=== PATIENT | male | born 1945 | race Caucasian/White ===

== ENCOUNTER 2017-04-21 11:23 | Inpatient (IN) ==
[2017-04-21] MEDS ORDERED: Ipratropium/Albuterol Neb 3 ML IH ONE (11:34)
--- NOTE | 2017-04-21 11:38 | Emergency Department Note ---
Disposition Clinical Impression: Acute exacerbation of chronic obstructive airways disease, Hypoxia Altered mental status Qualifiers: Altered mental status type: unspecified Qualified Code(s): R41.82 - Altered mental status, unspecified Disposition: Admitted As Inpatient Condition: Fair Referrals: NONE,PCP [Non-Partnered Physician] - Forms: ED Satisfaction Letter Time of Disposition: 13:16 Fever HPI - General Chief Complaint: ED Fever Stated Complaint: Cough, fever Time Seen by Provider: 04/21/17 11:25 Source: patient Mode of arrival: wheelchair Limitations: no limitations Nursing Notes Reviewed: Yes Vital Signs Reviewed: Yes - History of Present Illness HPI Narrative: 71-year-old male who comes in with a history COPD use had increasing shortness of breath cough and a fever. Concern is for pneumonia. Pt Subjective Complaint: fever, malaise Onset (ago): hour(s) Temperature Source: tympanic Associated symptoms: Reports: chills, rigors, cough, chest pain, dyspnea, nausea , vomiting, altered mental status Improves with: nothing Worsens with: nothing Treatments prior to arrival fever: none - Related Data Home Medications Medication Instructions Recorded Confirmed Gabapentin [Neurontin] 400 mg PO TID 04/21/17 04/21/17 HYDROcodone/Acet 10/325 mg [Lynch 1 tab PO Q6HR PRN 04/21/17 04/21/17 10-325 mg] Lisinopril [Zestril] 20 mg PO DAILY 04/21/17 04/21/17 Simvastatin [Zocor] 20 mg PO HS 04/21/17 04/21/17 amLODIPine [Norvasc] 5 mg PO DAILY 04/21/17 04/21/17 clonazePAM [Klonopin] 1 mg PO TID 04/21/17 04/21/17 metFORMIN [Glucophage] 500 mg PO QPM 04/21/17 04/21/17 Allergies Allergy/AdvReac Type Severity Reaction Status Date / Time No Known Allergies Allergy Verified 04/21/17 13:51 Constitutional: Denies: fever, chills, weakness, weight change Eyes: Denies: eye pain, eye discharge, vision change ENT ED: Denies: ear pain, throat pain, dental pain, hearing loss, epistaxis, congestion, dysphagia Cardiovascular: Reports: chest pain. Denies: palpitations, dyspnea on exertion , edema, syncope Respiratory: Reports: cough, dyspnea, wheezes. Denies: hemoptysis, stridor Gastrointestinal: Denies: abdominal pain, nausea, vomiting, diarrhea, constipation, hematemesis, melena, hematochezia Genitourinary: Denies: urgency, dysuria, frequency, hematuria Musculoskeletal: Denies: back pain, neck pain, arthralgia, myalgia Integumentary: Denies: rash, abrasion, lesions Neurological: Reports: confusion. Denies: headache, weakness, numbness, paresthesias, abnormal gait, vertigo Psychiatric: Denies: anxiety, depression, suicidal thoughts, homicidal thoughts , auditory hallucinations, visual hallucinations Endocrine: Denies: fatigue Hematological/Lymphatic: Denies: easy bleeding, easy bruising Allergic/Immunologic: Denies: facial swelling, urticaria Fever PMH - Past Medical History Medical history: Reports: COPD, diabetes, hyperlipidemia, hypertension Psychiatric history: Reports: no psych history - Social History Smoking Status: Never smoker Alcohol use: Reports: none Drug use: Reports: none Physical Exam - General Limitations: altered mental status General appearance: alert - Head Head exam: atraumatic, normocephalic, normal inspection - Eye Eye exam: Present: normal appearance, PERRL, EOMI - ENT ENT exam: normal exam, normal oropharynx, mucous membranes moist - Neck Neck exam: Present: normal inspection, full ROM, trachea midline - Chest Chest inspection: Present: normal inspection, symmetric chest wall rise - Respiratory Respiratory exam: Present: wheezes, accessory muscle use - Cardiovascular Cardiovascular exam: Present: regular rate, normal rhythm, normal heart sounds - Abdominal Exam Abdominal exam: Present: soft, Non-Tender. Absent: tenderness, distention, guarding, rebound, rigidity - Extremities Exam Extremities exam: Present: normal inspection, full ROM. Absent: tenderness, pedal edema - Expanded Lower Extremity Exam Neurovascular/Tendon exam: Absent: motor deficit, sensory deficit, tendon deficit Gait: not tested/not observed - Back Exam Back exam: Present: normal inspection, full ROM. Absent: tenderness - Neurological Exam Neurological exam: Present: alert. Absent: motor sensory deficit - Psychiatric Psychiatric exam: Present: normal affect - Skin Skin exam: Present: warm, dry, intact, normal color Course - Reevaluation(s) Reevaluation #1: 71-year-old who came in with fever and cough felt that he had pneumonia. A chest x-ray was consistent with bronchiolitis. His white count slightly elevated , slightly elevated lactate. Patient was given antibiotics IV. Patient's blood gas did show a compensated respiratory status with a normal pH and PCO2 of 61 PO2 was low at 51 he was placed on BiPAP. Initially when he came in he was awake and alert became more somnolent. We obtained a CT of the head. Differential includes sepsis, COPD exacerbation with states he does take Lynch and may have taken extra. Time: 13:38 Vital Signs Temperature 99.8 F H 04/21/17 11:25 Pulse Rate 121 04/21/17 11:25 Respiratory Rate 24 04/21/17 11:25 Blood Pressure 157/106 04/21/17 11:25 O2 Sat by Pulse Oximetry 74 04/21/17 11:25 Temperature 99.8 F H 04/21/17 11:25 Pulse Rate 104 04/21/17 14:31 Respiratory Rate 20 04/21/17 14:31 Blood Pressure 134/87 04/21/17 14:31 O2 Sat by Pulse Oximetry 98 04/21/17 14:31 Oxygen Delivery Oxygen Delivery Bipap Fever - Lab Data Lab results reviewed: Yes I reviewed the patient's lab results. Result diagrams: 04/21/17 11:57 04/21/17 11:57 Lab Results 04/21/17 04/21/17 04/21/17 Range/Units 11:38 11:57 11:57 WBC 14.0 H (4.3-11.1) K/mcL RBC 4.82 (4.19-5.50) M/mcL Hgb 13.0 (12.9-16.9) g/dL Hct 43.1 (37.5-50.1) % MCV 89.4 (83.0-100.0) fL MCH 27.0 L (28.0-33.3) pg MCHC 30.2 L (31.6-35.5) g/dL RDW 14.3 (11.5-14.5) % Plt Count 259 (140-400) K/mcL MPV 9.0 L (9.4-12.4) fL Immature Gran % 0.4 (0-4) % Seg Neutrophils % 86.8 % Lymphocytes % 5.3 % Monocytes % 5.4 % Eosinophils % 1.8 % Basophils % 0.3 % Neutrophils # 12.2 H (1.6-8.9) K/mcL Lymphocytes # 0.8 (0.6-4.6) K/mcL Monocytes # 0.8 (0.0-1.3) K/mcL Eosinophils # 0.3 (0.0-0.6) K/mcL Basophils # 0.0 (0.0-0.2) K/mcL Immature Plt Fraction 2.0 (1.1-6.1) % PT 12.3 H (9.4-12.1) Seconds INR 1.1 ABG pH (7.32-7.45) pH Units ABG pCO2 (35-45) mmHg ABG pO2 (85-104) mmHg ABG HCO3 (21-27) mEQ/L ABG Total CO2 (20-26) mEq/L ABG O2 Saturation (95-98) % ABG Base Excess (-2.0 to 3.0) mEq/L Liter Flow L/MIN Blood Gas Modality Inspired O2 % Sodium (136-145) mEq/L Potassium (3.5-4.5) mEq/L Chloride (98-109) mEq/L Carbon Dioxide (19-29) mEq/L BUN (8-26) mg/dL Creatinine (0.72-1.25) mg/dL Est GFR ( Amer) (> 60) Est GFR (Non-Af Amer) (> 60) BUN/Creatinine Ratio (6-26) Glucose (70-99) mg/dL Calculated Osmolality (280-300) Lactic Acid (0.5-2.2) mmol/L Calcium (8.6-10.8) mg/dL Total Bilirubin (0.2-1.2) mg/dL Direct Bilirubin (0.0-0.5) mg/dL Indirect Bilirubin (0.0-1.2) mg/dL AST (5-34) Units/L ALT (0-55) Units/L Alkaline Phosphatase (38-126) Units/L Troponin I (0-0.03) ng/mL Serum Total Protein (6.0-8.3) g/dL Albumin (3.5-5.0) g/dL Globulin (2.4-3.5) g/dL Albumin/Globulin Ratio (1.1-2.2) Urine Color Yellow (Yellow) Urine Clarity Clear (Clear) Urine pH 5.5 (5.0-8.0) pH Units Ur Specific [place] 1.014 (1.010-1.025) Urine Protein Negative (Neg-Trace) mg/dL Urine Glucose (UA) Normal (Normal) mg/dL Urine Ketones Negative (Negative) mg/dL Urine Blood Negative (Negative) Urine Nitrite Negative (Negative) Urine Bilirubin Negative (Negative) Urine Urobilinogen Normal (Normal) mg/dL Ur Leukocyte Esterase Negative (Negative) Ur Culture Indicated? NO (NO) 04/21/17 04/21/17 04/21/17 Range/Units 11:57 11:57 11:57 WBC (4.3-11.1) K/mcL RBC (4.19-5.50) M/mcL Hgb (12.9-16.9) g/dL Hct (37.5-50.1) % MCV (83.0-100.0) fL MCH (28.0-33.3) pg MCHC (31.6-35.5) g/dL RDW (11.5-14.5) % Plt Count (140-400) K/mcL MPV (9.4-12.4) fL Immature Gran % (0-4) % Seg Neutrophils % % Lymphocytes % % Monocytes % % Eosinophils % % Basophils % % Neutrophils # (1.6-8.9) K/mcL Lymphocytes # (0.6-4.6) K/mcL Monocytes # (0.0-1.3) K/mcL Eosinophils # (0.0-0.6) K/mcL Basophils # (0.0-0.2) K/mcL Immature Plt Fraction (1.1-6.1) % PT (9.4-12.1) Seconds INR ABG pH (7.32-7.45) pH Units ABG pCO2 (35-45) mmHg ABG pO2 (85-104) mmHg ABG HCO3 (21-27) mEQ/L ABG Total CO2 (20-26) mEq/L ABG O2 Saturation (95-98) % ABG Base Excess (-2.0 to 3.0) mEq/L Liter Flow L/MIN Blood Gas Modality Inspired O2 % Sodium 139 (136-145) mEq/L Potassium 3.7 (3.5-4.5) mEq/L Chloride 97 L (98-109) mEq/L Carbon Dioxide 32 H (19-29) mEq/L BUN 9 (8-26) mg/dL Creatinine 0.98 (0.72-1.25) mg/dL Est GFR ( Amer) > 60 (> 60) Est GFR (Non-Af Amer) > 60 (> 60) BUN/Creatinine Ratio 9 (6-26) Glucose 174 H (70-99) mg/dL Calculated Osmolality 291 (280-300) Lactic Acid 2.5 H (0.5-2.2) mmol/L Calcium 9.9 (8.6-10.8) mg/dL Total Bilirubin (0.2-1.2) mg/dL Direct Bilirubin (0.0-0.5) mg/dL Indirect Bilirubin (0.0-1.2) mg/dL AST (5-34) Units/L ALT (0-55) Units/L Alkaline Phosphatase (38-126) Units/L Troponin I 0.00 (0-0.03) ng/mL Serum Total Protein (6.0-8.3) g/dL Albumin (3.5-5.0) g/dL Globulin (2.4-3.5) g/dL Albumin/Globulin Ratio (1.1-2.2) Urine Color (Yellow) Urine Clarity (Clear) Urine pH (5.0-8.0) pH Units Ur Specific [place] (1.010-1.025) Urine Protein (Neg-Trace) mg/dL Urine Glucose (UA) (Normal) mg/dL Urine Ketones (Negative) mg/dL Urine Blood (Negative) Urine Nitrite (Negative) Urine Bilirubin (Negative) Urine Urobilinogen (Normal) mg/dL Ur Leukocyte Esterase (Negative) Ur Culture Indicated? (NO) 04/21/17 04/21/17 04/21/17 Range/Units 11:57 12:05 13:30 WBC (4.3-11.1) K/mcL RBC (4.19-5.50) M/mcL Hgb (12.9-16.9) g/dL Hct (37.5-50.1) % MCV (83.0-100.0) fL MCH (28.0-33.3) pg MCHC (31.6-35.5) g/dL RDW (11.5-14.5) % Plt Count (140-400) K/mcL MPV (9.4-12.4) fL Immature Gran % (0-4) % Seg Neutrophils % % Lymphocytes % % Monocytes % % Eosinophils % % Basophils % % Neutrophils # (1.6-8.9) K/mcL Lymphocytes # (0.6-4.6) K/mcL Monocytes # (0.0-1.3) K/mcL Eosinophils # (0.0-0.6) K/mcL Basophils # (0.0-0.2) K/mcL Immature Plt Fraction (1.1-6.1) % PT (9.4-12.1) Seconds INR ABG pH 7.35 7.36 (7.32-7.45) pH Units ABG pCO2 61 H 60 H (35-45) mmHg ABG pO2 51 L 51 L (85-104) mmHg ABG HCO3 33.7 H 33.9 H (21-27) mEQ/L ABG Total CO2 35.6 H 35.7 H (20-26) mEq/L ABG O2 Saturation 84 L 84 L (95-98) % ABG Base Excess 6.2 H 6.6 H (-2.0 to 3.0) mEq/L Liter Flow 4 L/MIN Blood Gas Modality NC BPAP Inspired O2 35 % Sodium (136-145) mEq/L Potassium (3.5-4.5) mEq/L Chloride (98-109) mEq/L Carbon Dioxide (19-29) mEq/L BUN (8-26) mg/dL Creatinine (0.72-1.25) mg/dL Est GFR ( Amer) (> 60) Est GFR (Non-Af Amer) (> 60) BUN/Creatinine Ratio (6-26) Glucose (70-99) mg/dL Calculated Osmolality (280-300) Lactic Acid (0.5-2.2) mmol/L Calcium (8.6-10.8) mg/dL Total Bilirubin 0.9 (0.2-1.2) mg/dL Direct Bilirubin 0.3 (0.0-0.5) mg/dL Indirect Bilirubin 0.6 (0.0-1.2) mg/dL AST 16 (5-34) Units/L ALT 8 (0-55) Units/L Alkaline Phosphatase 86 (38-126) Units/L Troponin I (0-0.03) ng/mL Serum Total Protein 8.3 (6.0-8.3) g/dL Albumin 3.9 (3.5-5.0) g/dL Globulin 4.4 H (2.4-3.5) g/dL Albumin/Globulin Ratio 0.9 L (1.1-2.2) Urine Color (Yellow) Urine Clarity (Clear) Urine pH (5.0-8.0) pH Units Ur Specific [place] (1.010-1.025) Urine Protein (Neg-Trace) mg/dL Urine Glucose (UA) (Normal) mg/dL Urine Ketones (Negative) mg/dL Urine Blood (Negative) Urine Nitrite (Negative) Urine Bilirubin (Negative) Urine Urobilinogen (Normal) mg/dL Ur Leukocyte Esterase (Negative) Ur Culture Indicated? (NO) - Radiology Data Radiology results reviewed: Yes I reviewed the patient's radiology results. Chest X-Ray 04/21/17 11:33 IMPRESSION: Bilateral central pulmonary reticulonodular densities which may represent bronchitis/bronchiolitis. No lobar pneumonia. D/ / 04/21/2017 12:04:45 Joseph Sharma MD / nick Interpreting Provider: Joseph Sharma MD Chest X-Ray 04/21/17 11:33 IMPRESSION: Bilateral central pulmonary reticulonodular densities which may represent bronchitis/bronchiolitis. No lobar pneumonia. D/ / 04/21/2017 12:04:45 Joseph Sharma MD / nick Interpreting Provider: Joseph Sharma MD Head CT 04/21/17 13:36 IMPRESSION: No acute intracranial abnormality. D/ / Ted Perdomo MD / Ted Perdomo MD Interpreting Provider: Ted Perdomo MD - EKG Data EKG attestation: Yes I reviewed and interpreted this EKG. EKG shows normal: sinus rhythm Rate: bradycardia Rhythm: NSR Interpretation: no acute changes, nonspecific ST-T wave changes Critical Care Time Critical Care Time: Yes Total Critical Care Time: 30 Attestation: The high probability of a clinically significant, sudden or life threatening deterioration of the [respiratory] system(s) required my full and direct attention, intervention and personal management. The aggregate critical care time was [30] minutes. This time is in addition to time spent performing reported procedures but includes the following: [x] Data Review and interpretation [x] Patient assessment and monitoring of vital signs [x] Documentation [x] Medication orders and management
[2017-04-21 12:00] LABS: Bilirubin,Urine Negative (Negative); Blood,Urine Negative (Negative); Clarity,Urine Clear (Clear); Color,Urine Yellow (Yellow); Glucose,Urine (UA) Normal (Normal); Ketones,Urine Negative (Negative); Leukocyte Esterase,Urine Negative (Negative); Nitrite,Urine Negative (Negative); PH,Urine 5.5 pH Units (5.0-8.0); Protein,Urine Negative (Neg-Trace); Specific Gravity,Urine 1.014 (1.010-1.025); Urobilinogen,Urine Normal (Normal)
[2017-04-21 12:15] LABS: Basophils % 0.3 %; Eosinophils # 0.3 K/mcL (0.0-0.6); Eosinophils % 1.8 %; Hematocrit 43.1 % (37.5-50.1); Immature Granulocytes % 0.4 % (0-4); Lymphocytes # 0.8 K/mcL (0.6-4.6); Lymphocytes % 5.3 %; Mean Corpuscular HGB Conc 30.2 g/dL (31.6-35.5); Mean Corpuscular Volume 89.4 fL (83.0-100.0); Monocytes # 0.8 K/mcL (0.0-1.3); Monocytes % 5.4 %; Neutrophils # 12.2 K/mcL (1.6-8.9); Platelet Count 259 K/mcL (140-400); Red Blood Count 4.82 M/mcL (4.19-5.50); Red Cell Distribution Width 14.3 % (11.5-14.5); Segmented Neutrophils % 86.8 %
[2017-04-21 12:15] LABS: ABG Base Excess 6.2 mEq/L (-2.0 to 3.0); ABG HCO3 33.7 mEQ/L (21-27); ABG Oxygen Saturation 84 % (95-98); ABG PCO2 61 mmHg (35-45); ABG PH 7.35 pH Units (7.32-7.45); ABG PO2 51 mmHg (85-104); ABG TCO2 35.6 mEq/L (20-26)
[2017-04-21 12:16] LABS: Blood Gas Liter Flow 4 L/MIN
[2017-04-21 12:24] LABS: INR 1.1; Prothrombin Time 12.3 Seconds (9.4-12.1)
[2017-04-21 12:27] LABS: BUN/Creatinine Ratio 9 (6-26); Blood Urea Nitrogen 9 mg/dL (8-26); Calcium 9.9 mg/dL (8.6-10.8); Carbon Dioxide 32 mEq/L (19-29); Chloride 97 mEq/L (98-109); Glucose 174 mg/dL (70-99); Osmolality,Calculated 291 (280-300); Potassium 3.7 mEq/L (3.5-4.5); Sodium 139 mEq/L (136-145); eGFR For African Americans > 60 (> 60); eGFR For Non-African Americans > 60 (> 60)
[2017-04-21 12:28] LABS: Albumin 3.9 g/dL (3.5-5.0); Albumin/Globulin Ratio 0.9 (1.1-2.2); Bilirubin,Direct 0.3 mg/dL (0.0-0.5); Bilirubin,Indirect 0.6 mg/dL (0.0-1.2); Globulin 4.4 g/dL (2.4-3.5); Total Protein 8.3 g/dL (6.0-8.3)
[2017-04-21 12:30] LABS: Bilirubin,Total 0.9 mg/dL (0.2-1.2)
[2017-04-21] MEDS ORDERED: Levofloxacin 750 MG/150 ML 750 MG/150 ML BAG IVPB ONE (12:38)
[2017-04-21 13:48] LABS: ABG Base Excess 6.6 mEq/L (-2.0 to 3.0); ABG HCO3 33.9 mEQ/L (21-27); ABG Oxygen Saturation 84 % (95-98); ABG PCO2 60 mmHg (35-45); ABG PH 7.36 pH Units (7.32-7.45); ABG PO2 51 mmHg (85-104); ABG TCO2 35.7 mEq/L (20-26)
[2017-04-21 13:49] LABS: Blood Gas FiO2 35 %
[2017-04-21 14:39] LABS: ABG Base Excess 6.6 mEq/L (-2.0 to 3.0); ABG HCO3 33.9 mEQ/L (21-27); ABG Oxygen Saturation 98 % (95-98); ABG PCO2 60 mmHg (35-45); ABG PH 7.36 pH Units (7.32-7.45); ABG PO2 107 mmHg (85-104); ABG TCO2 35.7 mEq/L (20-26)
[2017-04-21 14:41] LABS: Blood Gas FiO2 50 %; Blood Gas Respiration Rate 8
[2017-04-21] MEDS ORDERED: Naloxone 0.4 MG/ML INJ IVP PRN (14:41)
[2017-04-21] MEDS ORDERED: Ondansetron 4 MG/2 ML VIAL IVP PRN (14:41)
[2017-04-21] MEDS ORDERED: Acetaminophen 325 MG TABLET PO PRN (14:41)
[2017-04-21] MEDS ORDERED: Naloxone 0.4 MG/ML INJ IVP ONE (14:55)
[2017-04-21] MEDS ORDERED: Albuterol 2.5 MG/3 ML NEBULIZER IH PRN (14:58)
[2017-04-21] MEDS ORDERED: methylPREDNISolone 125 MG/2 ML VIAL IVP ONE (15:00)
--- NOTE | 2017-04-21 15:15 | Internal Med History&Physical ---
Date of Encounter: 04/21/17 Time of Encounter: 15:03 Assessment and Plan (1) Acute and chronic respiratory failure Current visit: Yes Status: Acute Patient with COPD and wears 2L O2 at home. He presents with shortness of breath , cough, fever. He is hypoxic with saturation of 84% on 4L NC. This improved on bipap to 90s. Of note, patient does not wish to be intubated. Continue bipap and treat COPD exacerbation with steroids, nebulizers and antibiotics. Qualifiers: Respiratory failure complication: hypoxia Qualified Code(s): J96.21 - Acute and chronic respiratory failure with hypoxia (2) Acute exacerbation of chronic obstructive airways disease Current visit: Yes Status: Acute Patient with COPD and wears 2L O2 at home. He presents with SOB, cough. CXR consistent with bronchitis. He is hypoxic requiring bipap. duoneb treatments QID albuterol nebulizer Q2hr PRN Solu-medrol 125mg IVP followed by 60mg IVP TID titrate bipap and oxygen to maintain O2 saturation > 92%. Levaquin IVPB daily. (3) Sepsis Current visit: Yes Status: Acute Patient with bronchitis, tachycardia with HR in 100s, tachypnea with RR 22-24, and elevated WBC of 14.0. Lactate was 2.5. Blood cultures drawn and sent. second lactate ordered antibiotics initiated with Levaquin. Qualifiers: Sepsis type: sepsis due to unspecified organism Qualified Code(s): A41.9 - Sepsis, unspecified organism (4) Altered mental status Current visit: Yes Status: Acute Patient somnolent on assessment, but arousable. Patient's reports he seemed a bit disoriented. she reports at baseline it is not unusual for him to sleep 18 hours a day, and rarely leaves the house. She reports he takes [place] for chronic back pain and he may have taken too much today. Patient is hypoxic and meets criteria for sepsis. His somnolence may be due to narcotic respiratory suppression and hypoxia. 1 dose of narcan ordered, monitor patient for response. Treat hypoxia and cOPD exacerbation with bipap, steroids, antibiotics and nebulizers. Qualifiers: Altered mental status type: somnolence Qualified Code(s): R40.0 - Somnolence (5) Hypoxia Current visit: Yes Status: Acute Secondary to bronchitis and COPD exacerbation. Patient satting 84% on 4L. He improved to 90s on bipap. Continue bipap and titrate to maintain saturation > 92%. (6) Type 2 diabetes mellitus Current visit: Yes Status: Acute Hold metformin diabetic diet check Hgb A1c check blood sugars ACHS sliding scale correction dose ACHS hypoglycemic protocol. 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 Qualifiers: Sleep apnea type: unspecified type Qualified Code(s): G47.30 - Sleep apnea , unspecified (8) DVT prophylaxis Current visit: Yes Status: Acute anti-embolic stockings lovenox SQ daily. Internal Medicine - H&P: HPI Chief complaint: shortness of breath, fever Admitted From: Emergency Dept Plans for Post Hospital Care: Home History of present illness: Mr. Jauregui is a 71 year old male with HTN, HLD, type 2 DM, CAD s/p stent placements, COPD on 2L O2 at home presented to the ED today with complaintes of fever, cought and shortness of breath. Patient was somnolent on evaluation and most of history obtained from his . She reports patient has been coughing a lot lately, and that when she returned from an errand this morning, he seemed a little disoriented and asked that she take his temperature, she reports it was 100.1. He then asked to be taken to the ED. She reports he takes pain medication for chronic back pain and it is possible he has taken too much of that. She also reports he was diagnosed with bronchitis about a week ago and treated with Keflex. On arrival to the [facility], she reports patient vomited. Paitent also reporting some chest discomfort, chills. Evaluation in the ED revealed elevated WBC of 14.0, tachycardia with HR in the low 100s, elevated RR of 22-24. Troponin was negative at 0.00. Lactate was elevated at 2.5. ABG showed hypoxia with O2 sat of 84% on 4L and after initial bipap. His ABG improved after increasing bipap settings. CXR showed bilateral central pulmonary densities consistent with bronchitis vs. bronchiolitis. CT of the head was negative for acute abnormality. On exam, patient was somnolent but arousable. Heart had regular rhythm with mildly tachycardic rate. Lungs with bilateral rhonchi. Patient was satting in the 90s on bipap. Past Med Surg Social Fam HX - Past Medical History Medical history: COPD, coronary artery disease, diabetes, hyperlipidemia, hypertension, other (sleep apnea) Psychiatric history: no psych history - Past Surgical History Surgical History: angioplasty/stent, other - Social History Smoking Status: Former smoker (100 pack year history) Smokeless Tobacco Status: No Alcohol use: none Drug use: none - Family History Mother Living Status: Hx Family Cardiac Disorders: Yes Hx Family Genitourinary Disorders: Yes (ESRD) Father Living Status: Hx Family Cardiac Disorders: Yes Hx Family Endocrine Disorder: Yes (Diabetes) Internal Medicine - H&P: Meds Gabapentin [Neurontin] 400 mg PO TID 04/21/17 [History] HYDROcodone/Acet 10/325 mg [[place] 10-325 mg] 1 tab PO Q6HR PRN 04/21/17 [History ] Lisinopril [Zestril] 20 mg PO DAILY 04/21/17 [History] Simvastatin [Zocor] 20 mg PO HS 04/21/17 [History] amLODIPine [Norvasc] 5 mg PO DAILY 04/21/17 [History] clonazePAM [Klonopin] 1 mg PO TID 04/21/17 [History] metFORMIN [Glucophage] 500 mg PO QPM 04/21/17 [History] Allergies No Known Allergies Allergy (Verified 04/21/17 13:51) ROS unobtainable: due to mental status All Systems PM: A 10-system review of systems was performed and is negative for pertinent findings except as documented above in the HPI. - Constitutional Vitals: Temp Pulse Resp BP Pulse Ox 99.8 F H 104 20 134/87 98 04/21/17 11:25 04/21/17 14:31 04/21/17 14:31 04/21/17 14:31 04/21/17 14:31 General appearance: Present: A&O X 3 - Head Head exam: Present: atraumatic, normocephalic - Eye Eye exam: Present: PERRL, conjuntiva pink, sclera anicteric Pupils: Present: PERRL - Neck Neck exam general surgery: Present: supple, trachea midline. Absent: lymphadenopathy - Respiratory Respiratory exam: Present: accessory muscle use, decreased breath sounds, rales , rhonchi, tachypnea. Absent: wheezes - Cardiovascular Cardiovascular exam: Present: +S1, +S2, tachycardia. Absent: diastolic murmur, gallop, rubs, systolic murmur - GI/Abdominal GI/Abdominal exam: Present: normal bowel sounds, soft, no peritoneal signs. Absent: distended, tenderness - Extremities Exam Extremities exam: Present: warm, radial pulses palpable and symmetrical. Absent : calf tenderness, cyanotic, pedal edema - Neurological Exam Neurological exam: Present: CN II-XII intact, oriented X3. Absent: facial droop , speech deficit Additional comments: somnolent but arousable - Skin Skin exam: Present: dry, intact Internal Med - H&P Results - Labs CBC & Chem 7: 04/21/17 11:57 04/21/17 11:57 Labs: Short CBC 04/21/17 Range/Units 11:57 WBC 14.0 H (4.3-11.1) K/mcL Hgb 13.0 (12.9-16.9) g/dL Hct 43.1 (37.5-50.1) % Plt Count 259 (140-400) K/mcL Neutrophils # 12.2 H (1.6-8.9) K/mcL BMP 04/21/17 11:57 Sodium 139 Potassium 3.7 Chloride 97 L Carbon Dioxide 32 H BUN 9 Creatinine 0.98 Glucose 174 H Calcium 9.9 Cardiac Enzymes 04/21/17 Range/Units 11:57 Troponin I 0.00 (0-0.03) ng/mL Liver Function 04/21/17 Range/Units 11:57 Total Bilirubin 0.9 (0.2-1.2) mg/dL Direct Bilirubin 0.3 (0.0-0.5) mg/dL AST 16 (5-34) Units/L ALT 8 (0-55) Units/L Alkaline Phosphatase 86 (38-126) Units/L Albumin 3.9 (3.5-5.0) g/dL Urine 04/21/17 Range/Units 11:38 Urine Color Yellow (Yellow) Urine Clarity Clear (Clear) Urine pH 5.5 (5.0-8.0) pH Units Ur Specific [place] 1.014 (1.010-1.025) Urine Protein Negative (Neg-Trace) mg/dL Urine Glucose (UA) Normal (Normal) mg/dL - ABG Interpretation ABG results: 04/21/17 04/21/17 04/21/17 12:05 13:30 14:35 ABG pH 7.35 7.36 7.36 ABG pCO2 61 H 60 H 60 H ABG pO2 51 L 51 L 107 H ABG HCO3 33.7 H 33.9 H 33.9 H ABG Total CO2 35.6 H 35.7 H 35.7 H ABG O2 Saturation 84 L 84 L 98 ABG Base Excess 6.2 H 6.6 H 6.6 H - Impressions ITS Impressions Chest X-Ray 04/21/17 11:33 IMPRESSION: Bilateral central pulmonary reticulonodular densities which may represent bronchitis/bronchiolitis. No lobar pneumonia. D/ /21/2017 12:04:45 Joseph Sharma MD / nick Interpreting Provider: Joseph Sharma MD Head CT 04/21/17 13:36 IMPRESSION: No acute intracranial abnormality. D/ / Ted Perdomo MD / Ted Perdomo MD Interpreting Provider: Ted Perdomo MD - Diagnostic Studies Chest x-ray Additional comments: Chest X-Ray 04/21/17 11:33 IMPRESSION: Bilateral central pulmonary reticulonodular densities which may represent bronchitis/bronchiolitis. No lobar pneumonia. D/ : / 04/21/2017 12:04:45 Joseph Sharma MD / nick Interpreting Provider: Joseph Sharma MD CT scan - head Additional comments: Head CT 04/21/17 13:36
[2017-04-21] MEDS ORDERED: D5% in Water 1,000 ML IVC PRN (15:28)
[2017-04-21] MEDS ORDERED: Dextrose Gel 15 GM PO PRN ×2 (15:28)
[2017-04-21] MEDS ORDERED: *HR* Dextrose 50 % in Water (Syg) 50 ML SYRINGE IVP PRN (15:28)
[2017-04-21] MEDS: Ipratropium/Albuterol Neb 3 ML IH SCH ×2 (16:02→23:12)
[2017-04-21] MEDS: clonazePAM 1 MG TABLET PO SCH ×2 (17:06→21:46)
[2017-04-21] MEDS: Insulin LISPRO 300 UNITS/3 ML VIAL SQ SCH ×2 (17:07→21:46)
[2017-04-21] MEDS: Piperacillin/Tazobactam 3.375 GM in D5% in Water (Mini-Bag+) 100 ML IVPB SCH (18:25)
[2017-04-21] MEDS: Budesonide/Formoterol 160/4.5 MDI IH SCH (23:13)
[2017-04-22] MEDS: methylPREDNISolone 125 MG/2 ML VIAL IVP SCH ×4 (00:01→23:41)
[2017-04-22 01:02] LABS: Basophils % 0.2 %; Hematocrit 41.3 % (37.5-50.1); Hemoglobin 12.7 g/dL (12.9-16.9); Immature Granulocytes % 0.2 % (0-4); Lymphocytes # 0.7 K/mcL (0.6-4.6); Lymphocytes % 5.3 %; Mean Corpuscular HGB Conc 30.8 g/dL (31.6-35.5); Mean Corpuscular Hemoglobin 26.9 pg (28.0-33.3); Mean Corpuscular Volume 87.5 fL (83.0-100.0); Mean Platelet Volume 9.3 fL (9.4-12.4); Monocytes # 0.1 K/mcL (0.0-1.3); Monocytes % 0.8 %; Neutrophils # 12.1 K/mcL (1.6-8.9); Platelet Count 208 K/mcL (140-400); Red Blood Count 4.72 M/mcL (4.19-5.50); Red Cell Distribution Width 14.4 % (11.5-14.5); Segmented Neutrophils % 93.5 %
[2017-04-22 01:13] LABS: BUN/Creatinine Ratio 12 (6-26); Blood Urea Nitrogen 11 mg/dL (8-26); Calcium 9.8 mg/dL (8.6-10.8); Carbon Dioxide 33 mEq/L (19-29); Chloride 98 mEq/L (98-109); Glucose 187 mg/dL (70-99); Osmolality,Calculated 292 (280-300); Potassium 4.1 mEq/L (3.5-4.5); Sodium 139 mEq/L (136-145); eGFR For African Americans > 60 (> 60); eGFR For Non-African Americans > 60 (> 60)
[2017-04-22] MEDS: Ipratropium/Albuterol Neb 3 ML IH SCH ×4 (04:27→23:02)
[2017-04-22] MEDS: *HR* Enoxaparin 40 MG/0.4 ML SYRINGE SQ SCH (05:09)
[2017-04-22] MEDS: Piperacillin/Tazobactam 3.375 GM in D5% in Water (Mini-Bag+) 100 ML IVPB SCH ×3 (05:09→23:40)
[2017-04-22] MEDS: Lisinopril 20 MG TABLET PO SCH (08:22)
[2017-04-22] MEDS: amLODIPine 5 MG TABLET PO SCH (08:22)
[2017-04-22] MEDS: clonazePAM 1 MG TABLET PO SCH ×3 (08:22→21:51)
[2017-04-22] MEDS: Insulin LISPRO 300 UNITS/3 ML VIAL SQ SCH ×4 (08:23→21:52)
[2017-04-22] MEDS: Levofloxacin 750 MG/150 ML 750 MG/150 ML BAG IVPB SCH (08:23)
[2017-04-22] MEDS: Budesonide/Formoterol 160/4.5 MDI IH SCH ×2 (11:22→23:02)
[2017-04-22] MEDS: Aspirin 81 MG TAB.CHEW PO SCH (16:16)
--- NOTE | 2017-04-22 16:16 | Electrocardiograph Report ---
[place] [id number] Test Date: 2017-04-21 Pat Name: Froylan Jauregui Department: 102 Room: [id number] Gender: M Flatbed Truck Driver: Joseph : 1945 Requested By: Hector Rider Order Number: [id number] Reading MD: Wedny Middleton Measurements Intervals [place] Rate: 125 P: 67 SC: 189 QRS: 28 QRSD: 102 T: 72 QT: 336 QTc: 410 Interpretive Statements SINUS TACHYCARDIA NONSPECIFIC T-WAVE ABNORMALITY ABNORMAL RHYTHM ECG Electronically Signed On 04-22-2017 16:14:28 EDT by Wendy Middleton
--- NOTE | 2017-04-22 16:56 | Internal Med Progress Note ---
Date of Encounter: 04/22/17 Time of Encounter: 08:15 - Assessment and plan (1) Sepsis Current Visit: Yes Status: Acute Assessment and plan: Patient presented with tachycardia, tachypnea and noted to have leukocytosis and pneumonia on imaging. Continue IV hydration, IV antibiotics. Remaining plan as below. Qualifiers: Sepsis type: sepsis due to unspecified organism Qualified Code(s): A41.9 - Sepsis, unspecified organism (2) Pneumonia Current Visit: Yes Status: Acute Assessment and plan: CT angiogram of chest shows bibasal infiltrates and right upper lobe nodules, suggestive of atelectasis/pneumonia. Patient and his report ongoing worsening symptoms for the last few days. Continue broad-spectrum IV antibiotics-Levaquin and Zosyn. Follow blood cultures, send sputum Gram stain and culture. IV hydration. Supplemental oxygen. Qualifiers: Pneumonia type: due to unspecified organism Laterality: bilateral Lung location: lower lobe of lung Qualified Code(s): J18.9 - Pneumonia, unspecified organism (3) Acute encephalopathy Current Visit: Yes Status: Resolved Assessment and plan: Likely related to narcotic pain medications and hypoxemia. Toxic/hypoxic. Currently resolved, at baseline. (4) Essential hypertension Current Visit: Yes Status: Chronic (5) Acute exacerbation of chronic obstructive airways disease Current Visit: Yes Status: Acute Assessment and plan: Improving. Continue scheduled bronchodilators, taper IV steroids as tolerated. Patient would likely benefit from inhaled corticosteroids at discharge. Continue supplemental oxygen and wean down FiO2 as tolerated. Patient is noted to be on home oxygen as needed. (6) Type 2 diabetes mellitus Current Visit: Yes Status: Chronic Assessment and plan: Accu-Chek blood glucose monitoring with sliding scale insulin. At risk for steroid-induced hyperglycemia. Diabetic diet. 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 Continue supplemental oxygen. Qualifiers: Respiratory failure complication: hypoxia Qualified Code(s): J96.21 - Acute and chronic respiratory failure with hypoxia - Subjective Interval history: Reports feeling well; improving shortness of breath; poor historian, most of the history obtained from his at bedside; Reports dry cough, currently improving. No chest pain, fever or chills. Patient states that he will be leaving AGAINST MEDICAL ADVICE tomorrow evening at 5 PM, if he is not discharged. - Constitutional Vitals: Temp Pulse Resp BP Pulse Ox 98.2 F 102 18 154/79 95 04/22/17 15:47 04/22/17 15:47 04/22/17 16:45 04/22/17 15:47 04/22/17 16:45 General appearance: Present: A&O X 3, answers questions appropriately - Respiratory Respiratory exam: Present: CTAB, rales (Bilateral coarse rhonchorous breath sounds). Absent: accessory muscle use, rhonchi, wheezes - Cardiovascular Cardiovascular exam: Present: RRR, +S1, +S2. Absent: diastolic murmur, gallop, rubs, systolic murmur - GI/Abdominal GI/Abdominal exam: Present: normal bowel sounds, soft, no peritoneal signs. Absent: distended, tenderness - Extremities Exam Extremities exam: Present: full ROM, warm, radial pulses palpable and symmetrical. Absent: calf tenderness, cyanotic, pedal edema - Neurological Exam Neurological exam: Present: CN II-XII intact, oriented X3, no focal deficits. Absent: pronater drift, facial droop, speech deficit Internal Medicine: Result - Labs CBC & Chem 7: 04/22/17 00:02 04/22/17 00:02 Labs: Short CBC 04/22/17 Range/Units 00:02 WBC 13.0 H (4.3-11.1) K/mcL Hgb 12.7 L (12.9-16.9) g/dL Hct 41.3 (37.5-50.1) % Plt Count 208 (140-400) K/mcL Neutrophils # 12.1 H (1.6-8.9) K/mcL BMP 04/22/17 00:02 Sodium 139 Potassium 4.1 Chloride 98 Carbon Dioxide 33 H BUN 11 Creatinine 0.94 Glucose 187 H Calcium 9.8 Cardiac Enzymes 04/21/17 04/22/17 Range/Units 17:25 00:02 Troponin I 0.00 0.00 (0-0.03) ng/mL - ABG Interpretation ABG results: ABG ABG pH 7.36 pH Units (7.32-7.45) 04/21/17 14:35 ABG pCO2 60 mmHg (35-45) H 04/21/17 14:35 ABG pO2 107 mmHg (85-104) H 04/21/17 14:35 ABG O2 Saturation 98 % (95-98) 04/21/17 14:35 PT/INR, D-dimer PT 12.3 Seconds (9.4-12.1) H 04/21/17 11:57 Consult Discharge Plan - Plan Referrals: Shivam Sharp MD [Primary Care Provider] -
[2017-04-23] MEDS: Ipratropium/Albuterol Neb 3 ML IH SCH ×4 (04:46→22:47)
[2017-04-23 05:02] LABS: Basophils % 0.1 %; Hematocrit 38.4 % (37.5-50.1); Hemoglobin 12.3 g/dL (12.9-16.9); Immature Granulocytes % 0.6 % (0-4); Lymphocytes # 0.5 K/mcL (0.6-4.6); Lymphocytes % 2.6 %; Mean Corpuscular Hemoglobin 27.7 pg (28.0-33.3); Mean Corpuscular Volume 86.5 fL (83.0-100.0); Mean Platelet Volume 8.9 fL (9.4-12.4); Monocytes # 0.4 K/mcL (0.0-1.3); Monocytes % 2.3 %; Neutrophils # 17.2 K/mcL (1.6-8.9); Platelet Count 214 K/mcL (140-400); Red Blood Count 4.44 M/mcL (4.19-5.50); Red Cell Distribution Width 14.5 % (11.5-14.5); Segmented Neutrophils % 94.4 %
[2017-04-23 05:14] LABS: BUN/Creatinine Ratio 18 (6-26); Blood Urea Nitrogen 16 mg/dL (8-26); Carbon Dioxide 31 mEq/L (19-29); Chloride 99 mEq/L (98-109); Glucose 253 mg/dL (70-99); Osmolality,Calculated 298 (280-300); Sodium 139 mEq/L (136-145); eGFR For African Americans > 60 (> 60); eGFR For Non-African Americans > 60 (> 60)
[2017-04-23 05:15] LABS: Potassium 4.2 mEq/L (3.5-4.5)
[2017-04-23] MEDS: *HR* Enoxaparin 40 MG/0.4 ML SYRINGE SQ SCH (06:07)
[2017-04-23] MEDS: Insulin LISPRO 300 UNITS/3 ML VIAL SQ SCH ×4 (08:55→20:55)
[2017-04-23] MEDS: Aspirin 81 MG TAB.CHEW PO SCH (08:58)
[2017-04-23] MEDS: clonazePAM 1 MG TABLET PO SCH ×3 (08:58→20:55)
[2017-04-23] MEDS: Lisinopril 20 MG TABLET PO SCH (08:58)
[2017-04-23] MEDS: amLODIPine 5 MG TABLET PO SCH (08:58)
[2017-04-23] MEDS: Piperacillin/Tazobactam 3.375 GM in D5% in Water (Mini-Bag+) 100 ML IVPB SCH ×2 (08:58→15:54)
[2017-04-23] MEDS: Levofloxacin 750 MG/150 ML 750 MG/150 ML BAG IVPB SCH (09:04)
[2017-04-23] MEDS: MethylPREDNISolone 40 MG/ML VIAL IVP SCH ×2 (10:51→17:42)
[2017-04-23] MEDS: Budesonide/Formoterol 160/4.5 MDI IH SCH ×2 (11:00→22:47)
--- NOTE | 2017-04-23 18:19 | Internal Med Progress Note ---
Date of Encounter: 04/23/17 Time of Encounter: 09:20 - Assessment and plan (1) Sepsis Current Visit: Yes Status: Acute Assessment and plan: Patient presented with tachycardia, tachypnea and noted to have leukocytosis and pneumonia on imaging. Noted to have worsening leukocytosis, likely related to steroid use. Continue IV hydration, IV antibiotics. Remaining plan as below. Qualifiers: Sepsis type: sepsis due to unspecified organism Qualified Code(s): A41.9 - Sepsis, unspecified organism (2) Pneumonia Current Visit: Yes Status: Acute Assessment and plan: CT angiogram of chest shows bibasal infiltrates and right upper lobe nodules, suggestive of atelectasis/pneumonia. Continue IV Zosyn and hold Levaquin at this time. 2 sets of initial blood cultures are so far negative. Unable to send sputum for Gram stain and culture as patient is not able to produce sputum. Add cough suppressant. Supplemental oxygen. Qualifiers: Pneumonia type: due to unspecified organism Laterality: bilateral Lung location: lower lobe of lung Qualified Code(s): J18.9 - Pneumonia, unspecified organism (3) Acute encephalopathy Current Visit: Yes Status: Resolved (4) Essential hypertension Current Visit: Yes Status: Chronic (5) Acute exacerbation of chronic obstructive airways disease Current Visit: Yes Status: Acute Assessment and plan: Improving but patient needs further monitoring. Continue scheduled bronchodilators, taper IV steroids as tolerated. Patient would likely benefit from inhaled corticosteroids at discharge. Continue supplemental oxygen and wean down FiO2 as tolerated. Patient is noted to be on home oxygen as needed. (6) Type 2 diabetes mellitus Current Visit: Yes Status: Chronic Assessment and plan: Accu-Chek blood glucose monitoring with sliding scale insulin. At risk for steroid-induced hyperglycemia. Diabetic diet. 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 intermodal truck driver use Qualified Code(s) : E11.8 - Type 2 diabetes mellitus with unspecified complications; Z79.4 - local company intermodal truck driver (current) use of insulin (7) Sleep apnea Current Visit: Yes Status: Chronic Qualifiers: Sleep apnea type: unspecified type Qualified Code(s): G47.30 - Sleep apnea , unspecified (8) Acute and chronic respiratory failure Current Visit: Yes Status: Acute Qualifiers: Respiratory failure complication: hypoxia Qualified Code(s): J96.21 - Acute and chronic respiratory failure with hypoxia - Subjective Interval history: Continues to have intermittent dry cough, unable to produce sputum. No fever or chills. Also has intermittent dyspnea, worse with exertion. - Constitutional Vitals: Temp Pulse Resp BP Pulse Ox 97.7 F 111 18 102/62 95 04/23/17 16:20 04/23/17 16:20 04/23/17 16:20 04/23/17 16:20 04/23/17 16:20 General appearance: Present: A&O X 3, answers questions appropriately - Respiratory Respiratory exam: Present: CTAB (Coarse breath sounds bilaterally). Absent: accessory muscle use, rales, rhonchi, wheezes - Cardiovascular Cardiovascular exam: Present: RRR, +S1, +S2, tachycardia. Absent: diastolic murmur, gallop, rubs, systolic murmur - GI/Abdominal GI/Abdominal exam: Present: normal bowel sounds, soft, no peritoneal signs. Absent: distended, tenderness - Extremities Exam Extremities exam: Present: full ROM, warm, radial pulses palpable and symmetrical. Absent: calf tenderness, cyanotic, pedal edema Internal Medicine: Result - Labs CBC & Chem 7: 04/23/17 04:47 04/23/17 04:47 Labs: Short CBC 04/23/17 Range/Units 04:47 WBC 18.2 H (4.3-11.1) K/mcL Hgb 12.3 L (12.9-16.9) g/dL Hct 38.4 (37.5-50.1) % Plt Count 214 (140-400) K/mcL Neutrophils # 17.2 H (1.6-8.9) K/mcL BMP 04/23/17 04:47 Sodium 139 Potassium 4.2 Chloride 99 Carbon Dioxide 31 H BUN 16 Creatinine 0.91 Glucose 253 H Calcium 10.0 - ABG Interpretation ABG results: ABG ABG pH 7.36 pH Units (7.32-7.45) 04/21/17 14:35 ABG pCO2 60 mmHg (35-45) H 04/21/17 14:35 ABG pO2 107 mmHg (85-104) H 04/21/17 14:35 ABG O2 Saturation 98 % (95-98) 04/21/17 14:35 PT/INR, D-dimer PT 12.3 Seconds (9.4-12.1) H 04/21/17 11:57 Consult Discharge Plan - Plan Referrals: Shivam Sharp MD [Primary Care Provider] -
[2017-04-23] MEDS: methylPREDNISolone 125 MG/2 ML VIAL IVP SCH (18:58)
[2017-04-23] MEDS ORDERED: *HR* HYDROcodone/Acet 10/325 mg TABLET PO PRN (20:03)
[2017-04-23] MEDS: Insulin DETEMIR 100 UNIT/ML X5UNITS SQ SCH (23:41)
[2017-04-24] MEDS: Piperacillin/Tazobactam 3.375 GM in D5% in Water (Mini-Bag+) 100 ML IVPB SCH ×2 (00:39→08:01)
[2017-04-24] MEDS: MethylPREDNISolone 40 MG/ML VIAL IVP SCH ×2 (00:40→08:01)
[2017-04-24] MEDS: Ipratropium/Albuterol Neb 3 ML IH SCH ×2 (04:19→10:29)
[2017-04-24 04:21] LABS: Basophils % 0.1 %; Hematocrit 36.7 % (37.5-50.1); Hemoglobin 11.5 g/dL (12.9-16.9); Immature Granulocytes % 0.6 % (0-4); Lymphocytes # 0.5 K/mcL (0.6-4.6); Lymphocytes % 3.5 %; Mean Corpuscular HGB Conc 31.3 g/dL (31.6-35.5); Mean Corpuscular Hemoglobin 27.4 pg (28.0-33.3); Mean Corpuscular Volume 87.6 fL (83.0-100.0); Mean Platelet Volume 9.6 fL (9.4-12.4); Monocytes # 0.4 K/mcL (0.0-1.3); Neutrophils # 13.1 K/mcL (1.6-8.9); Platelet Count 236 K/mcL (140-400); Red Blood Count 4.19 M/mcL (4.19-5.50); Red Cell Distribution Width 14.6 % (11.5-14.5); Segmented Neutrophils % 92.8 %
[2017-04-24] MEDS: *HR* Enoxaparin 40 MG/0.4 ML SYRINGE SQ SCH (06:02)
[2017-04-24 06:53] VITALS: BP 146/73
[2017-04-24] MEDS: clonazePAM 1 MG TABLET PO SCH (08:00)
[2017-04-24] MEDS: Lisinopril 20 MG TABLET PO SCH (08:00)
[2017-04-24] MEDS: Aspirin 81 MG TAB.CHEW PO SCH (08:00)
[2017-04-24] MEDS: amLODIPine 5 MG TABLET PO SCH (08:01)
[2017-04-24] MEDS: Insulin LISPRO 300 UNITS/3 ML VIAL SQ SCH (08:04)
[2017-04-24] MEDS: Insulin DETEMIR 100 UNIT/ML X5UNITS SQ SCH (08:53)
--- NOTE | 2017-04-24 09:22 | Discharge Summary ---
Date of Encounter: 04/24/17 Time of Encounter: 09:15 - Discharge Diagnosis (1) Sepsis Priority: Primary Status: Acute Qualifiers: Sepsis type: sepsis due to unspecified organism Qualified Code(s): A41.9 - Sepsis, unspecified organism (2) Pneumonia Priority: Primary Status: Acute Qualifiers: Pneumonia type: due to unspecified organism Laterality: bilateral Lung location: lower lobe of lung Qualified Code(s): J18.9 - Pneumonia, unspecified organism (3) Acute encephalopathy Priority: Primary Status: Resolved (4) Essential hypertension Priority: Secondary Status: Chronic (5) Acute exacerbation of chronic obstructive airways disease Priority: Primary Status: Acute (6) Type 2 diabetes mellitus Priority: Secondary Status: Chronic Qualifiers: Diabetes mellitus complication status: with unspecified complications Diabetes mellitus [facility] insulin use: with ferry terminal agent use Qualified Code(s) : E11.8 - Type 2 diabetes mellitus with unspecified complications; Z79.4 - terminal operations supervisor (current) use of insulin (7) Sleep apnea Priority: Secondary Status: Chronic Qualifiers: Sleep apnea type: unspecified type Qualified Code(s): G47.30 - Sleep apnea , unspecified (8) Acute and chronic respiratory failure Priority: Primary Status: Resolved Qualifiers: Respiratory failure complication: hypoxia Qualified Code(s): J96.21 - Acute and chronic respiratory failure with hypoxia - Discharge Medications Prescriptions: Budesonide/Formoterol 160/4.5 [Symbicort 160/4.5] 2 puff IH BIDR #3 Ipratropium/Albuterol Neb [Duoneb] 3 ml IH Q4H PRN #30 inh PRN Reason: Shortness Of Breath/Wheezing Levofloxacin [Levaquin] 750 mg PO DAILY #5 tablet Nebulizer [Aeroeclipse] 1 each MC Q4H PRN #1 each PRN Reason: Shortness Of Breath/Wheezing Nebulizer Accessories [Sootheneb [id number] Adult Mask] 1 each MC Q4H PRN #30 each PRN Reason: Shortness Of Breath/Wheezing Nebulizer Accessories [Sootheneb [id number] Mesh Cap] 1 each MC Q4H PRN #30 each PRN Reason: Shortness Of Breath/Wheezing Nebulizer Accessories [Sootheneb [id number] Med Cup] 1 each MC Q4H PRN #30 each PRN Reason: Shortness Of Breath/Wheezing Omeprazole [PriLOSEC] 20 mg PO DAILY@0630 #20 predniSONE [PredniSONE] 60 mg PO DAILY 18 Days Home Medications: Gabapentin [Neurontin] 400 mg PO TID 04/21/17 [History] HYDROcodone/Acet 10/325 mg [[place] 10-325 mg] 1 tab PO Q6HR PRN 04/21/17 [History ] Lisinopril [Zestril] 20 mg PO DAILY 04/21/17 [History] Simvastatin [Zocor] 20 mg PO HS 04/21/17 [History] amLODIPine [Norvasc] 5 mg PO DAILY 04/21/17 [History] clonazePAM [Klonopin] 1 mg PO TID 04/21/17 [History] metFORMIN [Glucophage] 500 mg PO QPM 04/21/17 [History] Aspirin 81 mg PO DAILY 04/22/17 [History] Budesonide/Formoterol 160/4.5 [Symbicort 160/4.5] 2 puff IH BIDR #3 04/24/17 [ Rx] Ipratropium/Albuterol Neb [Duoneb] 3 ml IH Q4H PRN #30 inh 04/24/17 [Rx] Levofloxacin [Levaquin] 750 mg PO DAILY #5 tablet 04/24/17 [Rx] Nebulizer Accessories [Sootheneb [id number] Adult Mask] 1 each MC Q4H PRN #30 each 04/24/17 [Rx] Nebulizer Accessories [Sootheneb [id number] Med Cup] 1 each MC Q4H PRN #30 each [Rx] Nebulizer Accessories [Sootheneb Gqz599 Mesh Cap] 1 each MC Q4H PRN #30 each [Rx] Nebulizer [Aeroeclipse] 1 each MC Q4H PRN #1 each 04/24/17 [Rx] Omeprazole [PriLOSEC] 20 mg PO DAILY@0630 #20 04/24/17 [Rx] predniSONE [PredniSONE] 60 mg PO DAILY 18 Days 04/24/17 [Rx] Allergies/Adverse Reactions: Allergies No Known Allergies Allergy (Verified 04/21/17 13:51) Date of admission: 04/21/17 15:23 Primary care physician: Tracy Pereraarging clinician: Tosin Kraft Anticipated date of discharge: 04/24/17 - Patient Status Disposition: Home, Self-Care Condition: Fair Functional capacity at discharge: uses cane/walker Overall status at discharge: patient is progressing back to baseline - Discharge Instructions Instructions: Chronic Obstructive Pulmonary Disease (DC), Pneumonia (DC) Follow Up With: Shivam Sharp MD [Primary Care Provider] - Additional Instructions: F/up with PCP in 1-2 weeks - Diet and Activity Activity: increase activity as tolerated, wear oxygen at all times Diet: diabetic diet, low fat, low cholesterol, low salt diet Hospital course: Mr. Jauregui is a 71 year old male with the above medical problems, admitted with worsening shortness of breath and cough for the last few weeks. H ewas noted to have sepsis from likely bibasilar Pneumonia along with acute exacerbation of COPD. He was started on IV antibiotics- Levaquin and Zosyn along with IV hydration, IV steroids and scheduled bronchodilators and inhaled corticosteroids. Blood cultures remained negative and sputum culture could not be sent due to dry cough. Patient improved slowly and his O2 requirements improved to baseline of 2L/min via [place], however he was still noted to have rhonchi on auscultation today and might benefit from further IV steroids but he insisted on being discharged today. He is at risk for readmission and this has been thoroughly explained to the patient and his at bedside. He is otherwise stable. - Time Spent with Patient Total time spent providing and/or coordinating discharge services: Greater than 30 minutes (45 min) - Constitutional Vitals: Temp Pulse Resp BP Pulse Ox 97.7 F 86 18 146/73 93 04/24/17 06:47 04/24/17 06:47 04/24/17 06:47 04/24/17 06:47 04/24/17 06:47 General appearance: Present: A&O X 3, answers questions appropriately - Respiratory Respiratory exam: Present: rhonchi (B/L coarse breath sounds and scattered rhonchi at bases). Absent: accessory muscle use, rales, wheezes - Cardiovascular Cardiovascular exam: Present: RRR, +S1, +S2. Absent: diastolic murmur, gallop, rubs, systolic murmur
[2017-04-24] MEDS: Budesonide/Formoterol 160/4.5 MDI IH SCH (10:28)
== END 2017-04-24 11:20 | disposition home or self-care (01) | DRG 871 ==
LOC: EMEROO 11:23 → 2NENU 15:23
PROVIDERS: ADMIT Internal Medicine Endocrinology, Diabetes & Metabolism; ATTEND Internal Medicine